=== PATIENT | female | born 1990 | race African-American/Black ===

== ENCOUNTER 2016-11-09 16:02 | Emergency (ER) | payer SELFPAY ==
[2016-11-09 16:11] VITALS: BP 116/75; PULSE 82; TEMP 98.5; BMI 23.8
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
[2016-11-09] MEDS ORDERED: KETOROLAC TROMETHAMINE 30 MG/1 ML VIAL IM ONE (18:49)
[2016-11-09] MEDS ORDERED: KETOROLAC TROMETHAMINE 60 MG/2 ML VIAL IM ONE (18:49)
[2016-11-09] MEDS ORDERED: KETOROLAC TROMETHAMINE 60 MG/2 ML VIAL ONE (18:54)
== END 2016-11-09 20:21 | disposition home or self-care (01) ==
LOC: JERFT 16:02
PROC: 3E0233Z Introduction of Anti-inflammatory into Muscle, Percutaneous Approach (ICD-10-PCS; principal; 2016-11-09)
DX: M54.5 Low back pain (principal); V43.52XA Car driver injured in collision with other type car in traffic accident, initial encounter; W22.11XA Striking against or struck by driver side automobile airbag, initial encounter; Y92.414 Local residential or business street as the place of occurrence of the external cause; Y93.89 Activity, other specified
CPT/HCPCS: 71020-TC; 72050-TC; 72100-TC; 84703; 99281-25